=== PATIENT | female | born 1985 | race African-American/Black ===

== ENCOUNTER 2024-06-25 13:52 | Outpatient (CLI) | payer BC, SELFPAY ==
[2024-06-25] VITALS (11 sets, daily range): BP systolic 117; BP diastolic 72; PULSE 83–98; RESP 16; TEMP 36.7; O2SAT 98–100
--- NOTE | 2024-06-25 14:46 | CRLHL7_ITS ---
For Patients: As a result of the Century Cures Act, medical imaging exams and procedure reports are released immediately into your electronic medical record. You may view this report before your referring provider. If you have questions, please contact your health care provider. INDICATION: Evaluate anatomy. COMPARISON: OB ultrasound . TECHNIQUE: Limited obstetric ultrasound. Real time mederos scale imaging of the pelvis was performed with grayscale and color Doppler. FINDINGS: Sonographic imaging demonstrates a single living intrauterine gestation. The fetus has a regular cardiac rate of 139 beats per minute. The fetus has a vertex orientation. The suspected bilobed placenta lies anterior without evidence of placenta previa or abruption. The cervix is closed and measures 3.7 cm in length. There several prominent right adnexal veins. IMPRESSION: 1. Single living intrauterine gestation in vertex position with heart rate 139. 2. The suspected bilobed placenta lies anteriorly without evidence of placenta previa or abruption. 3. The cervix is closed. 4. Several prominent right adnexal veins, a nonspecific finding which can be seen with pelvic congestion syndrome. Dictated by Shamir Glasgow MD @ 06/25/2024 3:59:48 PM (Electronically Signed)
[2024-06-25 15:17] LABS: Appearance Urine Clear (Clear); Bilirubin Urine Negative (Negative); Blood Urine Negative (Negative); Color Urine Yellow (Yellow); Glucose Urine Negative (Negative); Ketones Urine 2+ (Negative); Leukocyte Esterase Urine Negative (Negative); Nitrite Urine Negative (Negative); Protein Urine Negative (Negative); Specific Gravity Urine 1.025 (1.000-1.030)
[2024-06-25 15:29] LABS: Clue Cells <20% Clue Cells Seen (None Seen); Trichomonas No Trichomonas Seen (None Seen); Yeast No Yeast Seen (None Seen)
--- NOTE | 2024-06-25 16:44 | PC.OBNST ---
NST Note NST Note Start: 06/25/24 14:19 Freq: ONCE Status: Active Protocol: Document 06/25/24 16:36 LANDY (Rec: 06/25/24 16:41 LANDY Desktop) NST Note 4 Para (# of births) 1 EDC 09/11/24 Gestational Age In Weeks & Days 28 Weeks & 6 Days High Risk Factors Advanced Maternal Age Patient Presented with Complaint(s) of Other Other Complaints vaginal bleeding Reactive Yes Appropriate for Gestational Age Yes RN Zhanna Ramirez RN Date 06/25/24 Reactive Yes Appropriate for Gestational Age Yes MARYANNE Chan RN Date 06/25/24 OB NST charge Yes Complete NST Note via Write Note Yes The provider's electronic signature indicates the NST is reactive/appropriate for gestational age. *Note to provider: If an addendum is required, open the patient's chart and click on the note under the Nurse/Allied Health tab.
== END 2024-06-25 16:20 | disposition home or self-care (01) ==
LOC: OB OUT 13:54 → OB 13:56
PROVIDERS: PCP Family Medicine; Visit Provider Family Medicine
DX: O46.8X3 Other antepartum hemorrhage, third trimester (principal); Z3A.28 28 weeks gestation of pregnancy
CPT/HCPCS: 59025; 76815; 76817; 81003; 84112; 87210; G0463

== ENCOUNTER 2024-08-30 07:40 | Inpatient (IN) | payer BC, MEDICAID, SELFPAY ==
[2024-08-30] VITALS (60 sets, daily range): BP systolic 92–180; BP diastolic 51–119; PULSE 60–133; RESP 16–19; TEMP 36.3–36.6; O2SAT 82–100; BMI 42.3
--- NOTE | 2024-08-30 08:08 | P.OBHP_ITS ---
OB - H&P: HPI Labor/Induction History of Present Illness Time Seen by Provider: 08:08 Date Seen: 08/30/24 Chief Complaint: The patient is a 38 year old 4 para 1 at 38+2 weeks gestation by LMP, who presents with contractions and SROM. Chief complaint: OB Out : 4 Para: 1 Narrative: Jasmine Stovall is a 38 year old female at 38+2 weeks by LMP c/w 8 week US who presents with contractions and SROM. Unsure what time contractions started, but notes she barely slept overnight. Experienced a large gush of clear fluid at 0630. Contractions became more intense and frequent. She is otherwise feeling well. Cervix was 2/50/-3 in the clinic yesterday. 7-/0 upon arrival to L&D. Breathing through contractions. Requesting epidural. complicated by AMA, cholestasis of , anemia on iron, history of ectopic , maternal HTLV-1 infection. Patient c/o mild pruritus at 36 weeks. Found to have mildly elevated bile acids (11), normal LFTs. Ectopic in 2020, treated with methotrexate. For history of uncomplicated HTLV-1, saw infectious disease in 2013 with her first . From the 2014 ID note: ASSESSMENT: This patient is infected with HTLV-1. This type of infection is endemic in [facility] affecting roughly 5% of the people.Transmission is mainly during breast feeding. Sexual transmission from female to male is very inefficient. Estimates are about 1% transmission per 100 years of marriage. RECOMMENDATIONS: 1. There is no established prophylactic therapy to prevent the rare complicati ons mentioned above, which occur in about 2% to 5% of patients. 2. There is no evidence that she has a complication. 3. She shares this information with . I would not really propose any change in their sexual behavior and I think it is fine for her to conceive and have a baby. If she does have a baby, I would certainly recommend avoiding breast feeding as this is the major route of transmission. I have discussed the matter with the patient and gave her a handout from up-to-date regarding the above matters. I do not think she needs any routine screening. If she does develop paraparesis or T-cell leukemia, the symptoms will speak for themselves. Fortunately, the risk of this is low. History of Present Dating criteria: based on LMP care: good care Ultrasounds: normal 1st trimester US and normal mid trimester US (Normal level 2) Labs Blood type: O (+) positive Rubella: immune RPR/VDLR: nonreactive GBS status: negative HBsAG: negative Review of Systems Status of ROS: Reports: 10 or more systems reviewed and unremarkable except as noted in History and below Meds Home Medications and Allergies Home Medications ?Medication ?Instructions ?Recorded ?Confirmed ?Type vits 75-iron 28 mg-folic 1 pkg PO DAILY 06/25/24 08/30/24 History acid 800 mcg-omega3 440 mg oral pack (One Daily ) Allergies Allergy/AdvReac Type Severity Reaction Status Date / Time No Known Drug Allergies Allergy Verified 08/30/24 08:20 OB - H&P: Exam Physical Exam: Vital signs: Temp Pulse Resp BP 97.4 F L 82 19 120/77 08/30/24 07:30 08/30/24 07:45 08/30/24 07:30 08/30/24 07:45 Narrative: General appearance: Well-appearing adult female. Alert, oriented and appropriate. Sitting up in hospital bed. HEENT: EOMI, no conjunctival injection or discharge. MMM. Neck: Supple. CV: RRR, no rubs, murmurs or extra heart sounds. Pulm: CTAB, no wheezes, rales or rhonchi. Abdomen: Gravid. MSK: Moving all extremities. Ext: Warm and well-perfused. No LE edema. Skin: No rashes appreciated over exposed skin. Neuro: Grossly normal strength and sensation. No focal deficits. Psych: Normal affect. 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 contraindicated d/t transmission risk. Status: Acute Plan - Patient plans bottle feeding
[2024-08-30] MEDS: LACTATED RINGERS 1000 ML 1,000 ML 900 ML IV (08:19)
[2024-08-30 08:30] LABS: Basophils Absolute Auto 0.03 K/uL (0.00-0.30); Basophils Percent Auto 0.5 % (0.0-3.0); Eosinophils Absolute Auto 0.03 K/uL (0.00-0.50); Eosinophils Percent Auto 0.5 % (0.0-7.0); Hematocrit 34.4 % (33.0-51.0); Immature Granulocytes Abs Auto 0.01 K/uL (0.00-0.30); Immature Granulocytes Pct Auto 0.2 %; Lymphocytes Absolute Auto 1.86 K/uL (0.90-2.90); Lymphocytes Percent Auto 30.1 % (20-44); Mean Corpuscular HGB Conc 32 gm/dL (32-36); Mean Corpuscular Hemoglobin 26 pg (26-34); Mean Corpuscular Volume 83 fL (80-100); Monocytes Percent Auto 8.1 % (0.0-11.0); Neutrophils Absolute Auto 3.75 K/uL (1.7-7.0); Neutrophils Percent Auto 60.6 % (42.0-72.0); Platelet Count* 188 K/uL (140-440); RDW Coefficient of Variation % 13.3 % (11.5-15.5); Red Blood Count 4.16 m/uL (4.00-5.20); White Blood Count* 6.18 K/uL (4.50-11.00)
[2024-08-30 08:31] LABS: Slide Review Reflex No
[2024-08-30] MEDS: LIDOCAINE 2% (PF) 5 ML VIAL EPIDURAL (09:09)
[2024-08-30] MEDS: ROPIVACAINE 0.2% 100 ml 100 ML 12 MG EPIDURAL (09:09)
--- NOTE | 2024-08-30 09:18 | P.ANBPRC_ITS ---
[facility] Surgical History (Updated 08/30/24 @ 08:27 by Autumn Solis MD) H/O LEEP ?Z98.890 - Other specified postprocedural states (ICD-10) Social History Smoking Status: Never smoker Meds Home Medications and Allergies Home Medications ?Medication ?Instructions ?Recorded ?Confirmed ?Type vits 75-iron 28 mg-folic 1 pkg PO DAILY 06/25/24 08/30/24 History acid 800 mcg-omega3 440 mg oral pack (One Daily ) Allergies Allergy/AdvReac Type Severity Reaction Status Date / Time No Known Drug Allergies Allergy Verified 08/30/24 08:20 Results Labs Labs: Laboratory Results - last 24 hr 08/30/24 08:14 WBC 6.18 RBC 4.16 Hgb 11.0 L Hct 34.4 MCV 83 MCH 26 MCHC 32 RDW Coeff of Dany 13.3 Plt Count 188 Neut % (Auto) 60.6 Lymph % (Auto) 30.1 Mclennan % (Auto) 8.1 Eos % (Auto) 0.5 Baso % (Auto) 0.5 Neut # (Auto) 3.75 Lymph # (Auto) 1.86 Mclennan # (Auto) 0.50 Eos # (Auto) 0.03 Baso # (Auto) 0.03 Abs Immat Gran (auto) 0.01 Imm/Tot Granulo (auto) 0.2 Vital Signs Vital Signs: Last Vital Signs Temp 97.4 F L 08/30/24 07:30 Pulse 88 08/30/24 09:17 Resp 19 08/30/24 07:30 BP 123/73 08/30/24 09:17 Pulse Ox 82 L 08/30/24 09:16 Weight: 110.223 kg Height: 161.29 cm Anesthesia Procedures Epidural Insertion Patient Location: OB Start Time: 08:22 Stop Time: 09:19 Start Date: 08/30/24 Stop Date: 08/30/24 Reason for Block: procedure for pain Patient Position: sitting Performed By: Verenice Shaffer Preanesthetic Checklist: IV checked, risks and benefits discussed, monitors and equipment checked, pre-op evaluation, timeout performed and anesthesia consent Prep: chlorhexidine gluconate Monitoring: blood pressure monitoring, continuous pulse oximetry and heart rate Approach: midline Vertebral Space: lumbar (1-5) Epidural Technique: MARIA DEL ROSARIO saline Needle Type: Tuohy needle Injection Technique: continuous catheter (continuous catheter) Needle gauge: 17 Needle Length (cm): 10 cm Needle Insertion Depth (cm): 7 Catheter Gauge: 19 Catheter Type: multi-orifice Catheter at skin depth (cm): 15 Test Dose Result: negative and lidocaine 1.5% with epinephrine 1 to 200,000
[2024-08-30] MEDS: OXYTOCIN 30 unit/500 ML in NS 30 UNIT/500 ML BAG IVPB (10:51)
[2024-08-30] MEDS: LACTATED RINGERS 1000 ML 1,000 ML 50 ML IV (11:52)
--- NOTE | 2024-08-30 12:33 | P.OBPN_ITS ---
Subjective Time Seen by Provider: 12:33 Date Seen: 08/30/24 Narrative: Patient in active labor. Dense epidural and she has no pain or pressure with contractions. Contractions had spaced after epidural, and IV pitocin initiated for augmentation; now ctx q2-4 mins. She has progressed steadily, now found to be complete at 1229. 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 Labor down and recheck in about 30 mins - Low dose pitocin for labor augmentation - FHT category II, reassuring - Anticipate vaginal delivery
--- NOTE | 2024-08-30 14:35 | W.PM.OBVAGDE ---
OB Procedure Vag Delivery Mother Details Mother Details: The patient is a 38 year-old, 4, Para 1, admitted on 08/30/24 at 38+2 weeks gestation. Presented with contractions and SROM at 0630. Found to be 6/90/0. Requested epidural and this was placed with good effect. Contractions spaced and IV pitocin was initiated for labor augmentation at 1050. Patient progressed to complete at 1229. Started pushing 1300. Pushed with good effort. FHT were category II in the second stage; some variable decelerations with pushing, rapid recovery to baseline. Vigorous male infant delivered spontaneously in the OA position over an intact perineum at 1404. Placed on maternal chest. Cord was cut and clamped after 60 second delay. Placenta delivered spontaneously at 1408. 3-vessel and appeared complete. Two small first degree perineal lacerations were repaired in the usual fashion. QBL 100 cc. Fundus palpated firm. Sharps and sponge counts were correct. Mom and baby are resting comfortably. : 4 Para: 1 Weeks Gestation: 38.2 Admission Date: 08/30/24 Additional Details Amniotic Membrane Status: SROM Amniotic Membrane Rupture Date: 08/30/24 Amniotic Membrane Rupture Time: 06:30 Amniotic Membrane Fluid Description: Clear Analgesia/Anesthesia Type: Epidural Waterbirth: No Pitcoin: Yes Intrapartal Events: Labor Augmentation Labor Onset: 07:30 Complete: 12:29 Pushin:00 Heart: heart tones during second stage were category II. Small variable decelerations with some contractions. No prolonged decels. Delivery Details Delivery Date: 08/30/24 Delivery Time: 14:04 Route of delivery: Infant Gender: Male Infant Viability: Alive; Heart Rate Present Position at Delivery: OA Delivery Details: Delivered over intact perineum via spontaneous vaginal delivery. was placed on maternal abdomen.? Cord was clamped and cut after a 30-60 second delay. Nose and mouth were bulb suctioned.? Infant weight pending. 1 Minute Interval Total Score: 9 5 Minute Interval Total Score: 9 Additional Details Shoulder Dystocia: No Placenta Delivery Time: 14:08 Placental Delivery Description: Spontaneous Delivery repair: Vicryl Procedure Done: Global Blood Loss: 100 Laceration: Perineal - 1st Degree Episiotomy Description: None Blood Loss Measurement Type: QBL Bakri Used: No Sponge/Need Count Correct: Yes Cord Vessel Description: 3 Vessels and Around Body Event Summary Status: Mother and were stable after delivery. Disposition: floor
[2024-08-30] MEDS: ACETAMINOPHEN 500 MG TABLET 1000 MG PO ×2 (17:01→22:53)
[2024-08-30] MEDS: IBUPROFEN 600 MG TABLET PO (17:35)
[2024-08-30 18:14] LABS: Hematocrit 36.8 % (33.0-51.0); Hemoglobin* 11.7 gm/dL (12.0-16.0); Mean Corpuscular HGB Conc 32 gm/dL (32-36); Mean Corpuscular Hemoglobin 26 pg (26-34); Mean Corpuscular Volume 83 fL (80-100); Platelet Count* 192 K/uL (140-440); Red Blood Count 4.46 m/uL (4.00-5.20); White Blood Count* 9.21 K/uL (4.50-11.00)
[2024-08-30 18:23] LABS: Slide Review Reflex No
[2024-08-30 18:44] LABS: Alanine Aminotransferase* 15 U/L (4-35); Aspartate Amino Transferase* 38 U/L (12-35); Blood Urea Nitrogen* 7 mg/dL (5-24); Creatinine* 0.6 mg/dL (0.5-1.5); Est. Creatinine Clearance* 106.19; Estimated Glomerular Filt Rate 118 ml/min; Uric Acid* 3.6 mg/dL (2.2-8.4)
[2024-08-31] MEDS: IBUPROFEN 600 MG TABLET PO ×2 (00:24→08:41)
[2024-08-31 03:51] VITALS: BP 103/65; PULSE 80; RESP 18; TEMP 36.8; O2SAT 98
[2024-08-31 05:21] LABS: Hematocrit 33.8 % (33.0-51.0); Hemoglobin* 10.6 gm/dL (12.0-16.0); Mean Corpuscular HGB Conc 31 gm/dL (32-36); Mean Corpuscular Hemoglobin 26 pg (26-34); Mean Corpuscular Volume 84 fL (80-100); Platelet Count* 194 K/uL (140-440); Red Blood Count 4.03 m/uL (4.00-5.20); White Blood Count* 7.83 K/uL (4.50-11.00)
[2024-08-31 05:28] LABS: Slide Review Reflex No
[2024-08-31] MEDS: ACETAMINOPHEN 500 MG TABLET 1000 MG PO ×2 (05:32→11:34)
[2024-08-31 05:37] LABS: Aspartate Amino Transferase* 42 U/L (12-35); Creatinine* 0.7 mg/dL (0.5-1.5); Est. Creatinine Clearance* 91.02; Estimated Glomerular Filt Rate 114 ml/min
[2024-08-31 05:38] LABS: Alanine Aminotransferase* 18 U/L (4-35); Blood Urea Nitrogen* 11 mg/dL (5-24)
--- NOTE | 2024-08-31 07:38 | PM.OBDSVD1 ---
DS: Providers Provider Date Seen: 08/31/24 Date of admission: 08/30/24 07:40 Primary care physician: Autumn Solis MD Admitting Clinician: Dustin Garcia MD Attending Physician on discharge: Dustin Garcia MD DS: Diagnosis Discharge Diagnosis (1) Cholestasis during : Status: Acute Problem details: Dx at 36 weeks. 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 contraindicated d/t transmission risk. (3) Vaginal delivery: Status: Acute Exam Narrative: Exam Narrative: Gen: No acute distress CV: Regular rate and rhythm, normal S1,S2, no murmurs Resp: Normal rate and effort, clear to auscultation bilaterally Abd: Soft, uterus firm and nontender at umbilicus Ext: Warm, dry, 2+ pedal pulses, no edema bilaterally. Calves non-tender to palpation. Const: Vital Signs, click to edit/add: Vital Signs - 24 hr 08/30/24 07:45 08/30/24 07:45 08/30/24 08:49 Temperature Pulse Rate 82 Pulse Rate [Pulse Oximeter] Respiratory Rate Blood Pressure 120/77 131/74 Blood Pressure [Ri ght Arm] Pulse Oximetry Oxygen Delivery Me thod 08/30/24 08:49 08/30/24 08:50 08/30/24 08:55 Temperature Pulse Rate 90 Pulse Rate [Pulse Oximeter] Respiratory Rate Blood Pressure Blood Pressure [Ri ght Arm] Pulse Oximetry 100 100 Oxygen Delivery Me thod 08/30/24 09:00 08/30/24 09:01 08/30/24 09:07 Temperature Pulse Rate Pulse Rate [Pulse Oximeter] Respiratory Rate Blood Pressure Blood Pressure [Ri ght Arm] Pulse Oximetry 100 92 100 Oxygen Delivery Me thod 08/30/24 09:12 08/30/24 09:13 08/30/24 09:13 Temperature Pulse Rate 81 Pulse Rate [Pulse Oximeter] Respiratory Rate Blood Pressure 114/66 Blood Pressure [Ri ght Arm] Pulse Oximetry 100 Oxygen Delivery Me thod 08/30/24 09:15 08/30/24 09:15 08/30/24 09:16 Temperature Pulse Rate 88 Pulse Rate [Pulse Oximeter] Respiratory Rate Blood Pressure 123/69 Blood Pressure [Ri ght Arm] Pulse Oximetry 82 L Oxygen Delivery Me thod 08/30/24 09:17 08/30/24 09:17 08/30/24 09:19 Temperature Pulse Rate 88 Pulse Rate [Pulse Oximeter] Respiratory Rate Blood Pressure 123/73 119/73 Blood Pressure [Ri ght Arm] Pulse Oximetry Oxygen Delivery Me thod 08/30/24 09:19 08/30/24 09:21 08/30/24 09:21 Temperature Pulse Rate 104 H 102 H Pulse Rate [Pulse Oximeter] Respiratory Rate Blood Pressure 140/74 H Blood Pressure [Ri ght Arm] Pulse Oximetry Oxygen Delivery Me thod 08/30/24 09:23 08/30/24 09:23 08/30/24 09:25 Temperature Pulse Rate 111 H Pulse Rate [Pulse Oximeter] Respiratory Rate Blood Pressure 127/75 129/71 Blood Pressure [Ri ght Arm] Pulse Oximetry Oxygen Delivery Me thod 08/30/24 09:25 08/30/24 09:31 08/30/24 09:31 Temperature Pulse Rate 133 H 108 H Pulse Rate [Pulse Oximeter] Respiratory Rate Blood Pressure 118/63 Blood Pressure [Ri ght Arm] Pulse Oximetry Oxygen Delivery Me thod 08/30/24 09:35 08/30/24 09:35 08/30/24 09:41 Temperature Pulse Rate 88 Pulse Rate [Pulse Oximeter] Respiratory Rate Blood Pressure 110/57 L 116/58 L Blood Pressure [Ri ght Arm] Pulse Oximetry Oxygen Delivery Me thod 08/30/24 09:41 08/30/24 09:51 08/30/24 09:51 Temperature Pulse Rate 94 114 H Pulse Rate [Pulse Oximeter] Respiratory Rate Blood Pressure 108/55 L Blood Pressure [Ri ght Arm] Pulse Oximetry Oxygen Delivery Me thod 08/30/24 09:55 08/30/24 09:55 08/30/24 10:14 Temperature Pulse Rate 103 H Pulse Rate [Pulse Oximeter] Respiratory Rate Blood Pressure 105/56 L 136/83 Blood Pressure [Ri ght Arm] Pulse Oximetry Oxygen Delivery Me thod 08/30/24 10:14 08/30/24 10:14 08/30/24 10:14 Temperature 97.4 F L Pulse Rate 114 H Pulse Rate [Pulse Oximeter] Respiratory Rate 17 Blood Pressure Blood Pressure [Ri ght Arm] Pulse Oximetry Oxygen Delivery Me thod 08/30/24 10:27 08/30/24 10:27 08/30/24 10:42 Temperature Pulse Rate 92 Pulse Rate [Pulse Oximeter] Respiratory Rate Blood Pressure 101/65 92/51 L Blood Pressure [Ri ght Arm] Pulse Oximetry Oxygen Delivery Me thod 08/30/24 10:42 08/30/24 11:06 08/30/24 11:06 Temperature Pulse Rate 103 H 111 H Pulse Rate [Pulse Oximeter] Respiratory Rate Blood Pressure 103/59 L Blood Pressure [Ri ght Arm] Pulse Oximetry Oxygen Delivery Me thod 08/30/24 11:13 08/30/24 11:13 08/30/24 11:22 Temperature 97.4 F L Pulse Rate 90 Pulse Rate [Pulse Oximeter] Respiratory Rate 16 Blood Pressure 109/61 Blood Pressure [Ri ght Arm] Pulse Oximetry Oxygen Delivery Me thod 08/30/24 11:29 08/30/24 11:29 08/30/24 11:42 Temperature Pulse Rate 80 Pulse Rate [Pulse Oximeter] Respiratory Rate Blood Pressure 126/69 111/63 Blood Pressure [Ri ght Arm] Pulse Oximetry Oxygen Delivery Me thod 08/30/24 11:42 08/30/24 11:51 08/30/24 11:56 Temperature Pulse Rate 89 Pulse Rate [Pulse Oximeter] Respiratory Rate Blood Pressure Blood Pressure [Ri ght Arm] Pulse Oximetry 100 100 Oxygen Delivery Me thod 08/30/24 12:01 08/30/24 12:05 08/30/24 12:05 Temperature 97.3 F L Pulse Rate Pulse Rate [Pulse Oximeter] Respiratory Rate 16 Blood Pressure Blood Pressure [Ri ght Arm] Pulse Oximetry 100 Oxygen Delivery Me thod 08/30/24 12:06 08/30/24 12:12 08/30/24 12:12 Temperature Pulse Rate 107 H Pulse Rate [Pulse Oximeter] Respiratory Rate Blood Pressure 133/84 Blood Pressure [Ri ght Arm] Pulse Oximetry 100 Oxygen Delivery Me thod 08/30/24 12:27 08/30/24 12:27 08/30/24 12:37 Temperature Pulse Rate 88 Pulse Rate [Pulse Oximeter] Respiratory Rate Blood Pressure 119/71 Blood Pressure [Ri ght Arm] Pulse Oximetry 100 Oxygen Delivery Me thod 08/30/24 12:42 08/30/24 12:44 08/30/24 12:44 Temperature Pulse Rate 103 H Pulse Rate [Pulse Oximeter] Respiratory Rate Blood Pressure 134/83 Blood Pressure [Ri ght Arm] Pulse Oximetry 100 Oxygen Delivery Me thod 08/30/24 12:47 08/30/24 12:52 08/30/24 12:56 Temperature Pulse Rate Pulse Rate [Pulse Oximeter] Respiratory Rate Blood Pressure Blood Pressure [Ri ght Arm] Pulse Oximetry 100 100 82 L Oxygen Delivery Me thod 08/30/24 12:57 08/30/24 12:57 08/30/24 13:14 Temperature Pulse Rate 104 H Pulse Rate [Pulse Oximeter] Respiratory Rate Blood Pressure 158/72 H 118/66 Blood Pressure [Ri ght Arm] Pulse Oximetry Oxygen Delivery Ak thod 08/30/24 13:14 08/30/24 13:27 08/30/24 13:27 Temperature Pulse Rate 81 93 Pulse Rate [Pulse Oximeter] Respiratory Rate Blood Pressure 121/75 Blood Pressure [Ri ght Arm] Pulse Oximetry Oxygen Delivery Ak thod 08/30/24 13:42 08/30/24 13:42 08/30/24 14:15 Temperature Pulse Rate 91 Pulse Rate [Pulse Oximeter] Respiratory Rate Blood Pressure 132/63 180/119 H Blood Pressure [Ri ght Arm] [facility] 14:15 08/30/24 14:17 08/30/24 14:17 Temperature Pulse Rate 96 100 Pulse Rate [Pulse Oximeter] Respiratory Rate Blood Pressure 142/65 H Blood Pressure [Ri ght Arm] Pulse Oximetry Oxygen Delivery Ak thod 08/30/24 14:27 08/30/24 14:27 08/30/24 14:47 Temperature Pulse Rate 102 H Pulse Rate [Pulse Oximeter] Respiratory Rate Blood Pressure 145/90 H 127/68 Blood Pressure [Ri ght Arm] Pulse Oximetry Oxygen Delivery Ak thod 08/30/24 14:47 08/30/24 14:57 08/30/24 14:57 Temperature Pulse Rate 81 90 Pulse Rate [Pulse Oximeter] Respiratory Rate Blood Pressure 120/67 Blood Pressure [Ri ght Arm] Pulse Oximetry Oxygen Delivery Ak thod 08/30/24 15:12 08/30/24 15:12 08/30/24 15:43 Temperature Pulse Rate 78 Pulse Rate [Pulse Oximeter] Respiratory Rate Blood Pressure 123/74 124/75 Blood Pressure [Ri ght Arm] Pulse Oximetry Oxygen Delivery Me thod 08/30/24 15:43 08/30/24 15:57 08/30/24 15:57 Temperature Pulse Rate 85 75 Pulse Rate [Pulse Oximeter] Respiratory Rate Blood Pressure 133/82 Blood Pressure [Ri ght Arm] Pulse Oximetry Oxygen Delivery Me thod 08/30/24 16:12 08/30/24 16:12 08/30/24 16:28 Temperature Pulse Rate 89 Pulse Rate [Pulse Oximeter] Respiratory Rate Blood Pressure 146/89 H 128/71 Blood Pressure [Ri ght Arm] Pulse Oximetry Oxygen Delivery Me thod 08/30/24 16:28 08/30/24 17:43 08/30/24 20:10 Temperature 97.9 F 97.6 F Pulse Rate 92 Pulse Rate [Pulse Oximeter] 110 H 96 Respiratory Rate 18 16 Blood Pressure Blood Pressure [Ri ght Arm] 132/79 127/73 Pulse Oximetry 99 Oxygen Delivery Me thod Room Air Room Air 08/30/24 22:51 08/31/24 03:51 Temperature 97.9 F 98.2 F Pulse Rate Pulse Rate [Pulse Oximeter] 112 H 80 Respiratory Rate 18 18 Blood Pressure Blood Pressure [Ri ght Arm] 123/70 103/65 Pulse Oximetry 98 Oxygen Delivery Me thod Room Air Room Air OB - DS: Summary Hospital Course Hospital Course: The patient is a 38 year old G 4 P 2 at 38.2 weeks gestation that was admitted to the Center on 08/30/24 for contractions and SROM. She had an uncomplicated vaginal delivery. She delivered a viable male . She is bottle feeding. the patient has done well. complicated by AMA, cholestasis of , anemia on iron, history of ectopic , maternal HTLV-1 infection. Patient c/o mild pruritus at 36 weeks. Found to have mildly elevated bile acids (11), normal LFTs. AST slightly elevated (max 42). Ectopic in 2020, treated with methotrexate. For history of uncomplicated HTLV-1, saw infectious disease in 2013 with her first . From the 2014 ID note: ASSESSMENT: This patient is infected with HTLV-1. This type of infection is endemic in [facility] affecting roughly 5% of the people. Transmission is mainly during breast feeding. Sexual transmission from female to male is very inefficient. Estimates are about 1% transmission per 100 years of marriage. RECOMMENDATIONS: 1. There is no established prophylactic therapy to prevent the rare complications mentioned above, which occur in about 2% to 5% of patients. 2. There is no evidence that she has a complication. 3. She shares this information with . I would not really propose any change in their sexual behavior and I think it is fine for her to conceive and have a baby. If she does have a baby, I would certainly recommend avoiding breast feeding as this is the major route of transmission. I have discussed the matter with the patient and gave her a handout from up-to-date regarding the above matters. I do not think she needs any routine screening. If she does develop paraparesis or T-cell leukemia, the symptoms will speak for themselves. Fortunately, the risk of this is low. [place] Infant Gender: Male Status at Discharge Functional status at discharge: independent ambulation Overall status at discharge: patient is progressing back to baseline Time Spent with Patient Time attestation: Total time spent providing and/or coordinating discharge services: Discharge Plan Discharge Disposition: Home, Self-Care Date of Admission: 08/30/24 07:40 Primary Care Provider: Autumn Solis I Condition: Improved Anticipated Discharge Date/Time: 08/31/24 Discharge Medications: Continued One Daily [id number] mg-mcg-mg combo pack 1 pkg PO DAILY Discharge Orders: Discharge Order (Routine); Ordered 08/31/24 Ordered By: Sonia Be Patient Education: OB Care, OB Vaginal/Bottle Feeding Follow Up Appointments: Autumn Solis MD [Primary Care Provider] - Forms: [employer] Call Info Instructions DS:Data Additional Comments Additional comments: - Pelvic rest for 6 weeks (no intercourse, tampons or douching), or until one week after vaginal bleeding stops. - Daily activities for the first week should be limited to taking care of patient and her baby, and only as tolerated. - No given history of HTLV-1 as primary form of transmission. - Call MD if fever > 100.4 degrees, bleeding more than 1 pad / hour, foul-smelling discharge, passage of golf-ball sized blood clots, or worsening of pain not controlled by medications. - Counseled on signs of post- depression
[2024-08-31 08:20] VITALS: BP 110/73; PULSE 76; RESP 18; TEMP 36.6
[2024-08-31] MEDS: DOCUSATE SODIUM 100 MG CAPSULE PO (08:41)
[2024-08-31 12:15] VITALS: BP 106/70; PULSE 90; RESP 18; TEMP 36.8
[2024-09-01 05:30] LABS: Rapid Plasma Reagin (RPR) Non Reactive (Non Reactive)
== END 2024-08-31 16:50 | disposition home or self-care (01) | DRG 560 ==
LOC: OB OUT 11:43 → OB 11:43
PROVIDERS: Admitting Provider Surgery; PCP Family Medicine; Visit Provider Surgery
DX: O26.643 Intrahepatic cholestasis of pregnancy, third trimester (principal); K83.1 Obstruction of bile duct; Z22 Carrier of infectious disease; L29.81 Cholestatic pruritus; O70.0 First degree perineal laceration during delivery; Z3A.38 38 weeks gestation of pregnancy; Z37.0 Single live birth; O26.893 Other specified pregnancy related conditions, third trimester
CPT/HCPCS: 01967; 36415; 82565; 84450; 84460; 84520; 84550; 85018; 85025; 85027; 86592; 99199; A9270; J2371; J2795; J7120